=== PATIENT | male | born 1990 | race Caucasian/White ===

== ENCOUNTER 2023-12-23 08:36 | Emergency (ER) | payer BC, SELFPAY ==
[2023-12-23 08:38] VITALS: BP 151/87
[2023-12-23 09:23] LABS: % Basophils 0.9 % (0-2); % Eosinophils 3.1 % (0-6); % Immature Granulocytes 0.3 % (0-0.5); % Lymphocytes 37.4 % (20.5-51.1); % Neutrophils 50.3 % (42.2-75.2); Absolute Basophils 0.1 10^3/uL (0-0.2); Absolute Eosinophils 0.2 10^3/uL (0-0.7); Absolute Lymphocytes 2.5 10^3/uL (1.2-3.4); Absolute Monocytes 0.5 10^3/uL (0.1-0.6); Absolute Neutrophils 3.4 10^3/uL (1.4-6.5); Hematocrit 42.5 % (39.0-52.0); Hemoglobin 14.5 g/dL (13.0-18.0); Mean Corp Hgb Conc. 34.1 g/dL (33.0-37.0); Mean Platelet Volume 10.6 fL (7.4-10.4); Nucleated Red Blood Cells % 0 % (-); Platelet Count 240 10^3/uL (130-400); Red Cell Dist. Width 13.1 % (11.5-14.5); White Blood Cell Count 6.8 10^3/uL (4.8-10.8)
--- NOTE | 2023-12-23 09:30 | ED.GENMED ---
History of Present Illness
General
Chief Complaint: Crisis Evaluation
Source: patient
Time Seen by Provider: 12/23/23 08:47
History of Present Illness
History of Present Illness:
33-year-old male with past medical history of ADHD, depression and anxiety, bipolar disorder presenting to the emergency department to be evaluated for increased depression but without any suicidal thoughts or intent to self-harm. Patient notes
that this been building for an extended period of time. recently left and took their children, has no immediate family, feels very alone. Does see a psychiatrist and psychologist, had first appointment with new psychologist recently. Patient
states he feels as if he is not being heard. No new medications or changes to medications. Denies any auditory or visual hallucinations. Denies any alcohol or drug abuse. No other physical concerns presently
Past History
Past History
ED Past Medical History: Psychiatric
ED Past Surgical History: None
Social History
Tobacco: Non-smoker
Alcohol: None
Drug: None
Personal:
Living: with family
Employment: Employed
Review of Systems
Review of Systems
All Other Systems: ROS reviewed and negative except as documented in HPI and ROS
Phy Exam
Physical Exam
Physical Exam:
GENERAL: Tearful and appears quite upset
EYE: conjunctiva clear
Head: Normocephalic atraumatic
NECK: Supple,
ENT: mmm.
LUNGS: no acute respiratory distress
NEUROLOGICAL: Alert and oriented
SKIN: Warm and dry, skin intact.
MUSCULOSKELETAL: well perfused.
PSYCH: Normal and appropriate interaction.
Scores
Heart Failure Risk
Heart Failure Risk Score: Not Applicable
Heart Score for Chest Pain Patients
STEMI patient?: Not applicable
Withdrawal Assessment of Alcohol
Withdrawal Assessment Completed?: Not applicable
Course
Orders/Labs/Results
Orders:
Orders
12/23/23 09:10
Complete Blood Count/With Diff Urgent
Comprehensive Metabolic Panel Urgent
Drug Screen, Urine [Urine Drug Abuse Screen] Urgent
Date Specimen was Collected: 12/23/23
Time Specimen was Collected: 09:05
12/23/23 09:23
Crisis Consult Urgent
Reason for Consult: depression
Abnormal Lab Results
12/23/23
09:10
MPV 10.6 H fL
(7.4-10.4)
U Marijuana (THC) Screen Positive H
(Negative)
12/23/23 09:10
12/23/23 09:10
Vital Signs
Initial and Last Documented VS:
Initial Vital Signs
Temp Pulse Resp BP Pulse Ox
98.3 F 82 16 151/87 98
12/23/23 08:38 12/23/23 08:38 12/23/23 08:38 12/23/23 08:38 12/23/23 08:38
Last Documented Vital Signs
Temp Pulse Resp BP Pulse Ox
98.3 F 82 16 151/87 98
12/23/23 08:38 12/23/23 08:38 12/23/23 08:38 12/23/23 08:38 12/23/23 08:38
MDM/Problems Addressed
MDM/Problems Addressed:
33-year-old male presenting the emergency department for evaluation of increased depression. Very much ongoing issue and currently sees both psychiatrist and psychologist for these issues. Patient denying any SI, HI or hallucinations.
Hemodynamically stable. Doubt any acute emergent medical pathology. Cleared for crisis evaluation. Disposition pending crisis consult.
Chronic conditions affecting care: Psychiatric illness
*Pulse Oximetry
Patient hypoxic: no
*Critical Care Note
Total Time (30-74mins, 75-104mins- exclusive of procedures): Not Applicable
Patient Management
Escalation/DeEscalation of care consider admission/obs:
Patient medically cleared for crisis evaluation. Will be sent to [facility] for ultimate disposition.
ED Attending Note
-
Portions of this chart may have been created with voice recognition software.� Occasional wrong word or��sound alike� substitutions may have occurred due to the inherent limitations of voice recognition software.
Discharge Plan
Departure
Patient Disposition: [facility]
Date of Disposition: 12/23/23
Time of Disposition: 10:10
Discharge Problem:
Acute adjustment disorder with depressed mood
Prescriptions:
No Action
dextroamphetamine-amphetamine [Adderall] 10 mg Tablet
10 mg PO TID
oxcarbazepine [Trileptal] 300 mg Tablet
300 mg PO BID
escitalopram oxalate [Lexapro] 5 mg Tablet
15 mg PO DAILY
Referrals:
UNKNOWN - PT DOES,NOT KNOW [Family Provider] -
Interventions
Interventions:
*Risk Screen - Suicide Last Done: 12/23/23 08:38
*General Assessment Last Done: 12/23/23 08:38
*Neglect/Abuse Screening Last Done: 12/23/23 08:38
ED- Fall Risk Assessment Last Done: 12/23/23 09:00
*ED COVID-19 Vaccine History Last Done: 12/23/23 09:03
*Nursing Disposition Last Done: 12/23/23 10:30
ED-Psychological Assessment Last Done: 12/23/23 09:03
Discharge Date and Time
Discharge Date/Time: 12/23/23 10:30
Print Language: [id number]
[2023-12-23 09:31] LABS: Amphetamines Negative (Negative); Barbiturates Negative (Negative); Benzodiazepines Negative (Negative); Buprenorphine Negative (Negative); Cocaine Negative (Negative); Marijuana Positive (Negative); Methadone Negative (Negative); Methamphetamines Negative (Negative); Opiates Negative (Negative); Phencyclidine Negative (Negative); Tricyclic Antidepressants Negative (Negative)
[2023-12-23 09:35] LABS: ALT (SGPT) 39 U/L (0-50); AST (SGOT) 31 U/L (17-59); Albumin 4.6 g/dl (3.5-5.0); Alkaline Phosphatase 63 U/L (38-126); Blood Urea Nitrogen 12 mg/dl (9-20); Calcium 9.9 mg/dl (8.4-10.2); Carbon Dioxide 29 mmol/L (22-30); Chloride 105 mmol/L (98-107); Estimated Creatinine Clearance > 125 ml/min; Glucose 95 mg/dl (70-99); Potassium 4.5 mmol/L (3.5-5.1); Sodium 142 mmol/L (135-145); Total Bilirubin 0.7 mg/dl (0.2-1.3); Total Protein 7.1 g/dl (6.3-8.2); eGFR > 60.00
== END 2023-12-23 10:30 ==
LOC: EMR 08:36
PROVIDERS: Physician Assistant Medical; EMERGENCY PHYSICIAN Emergency Medicine
DX: F43.21 Adjustment disorder with depressed mood (principal); F31.9 Bipolar disorder, unspecified; F90.9 Attention-deficit hyperactivity disorder, unspecified type
CPT/HCPCS: 99283; 80053; 80306; 85025